=== PATIENT | female | born 1990 | race Hispanic/Latino ===

== ENCOUNTER 2017-11-26 06:16 | Inpatient (IN) | payer BC ==
[2017-11-26] MEDS: Lactated Ringer's 1,000 ML IV SCH ×2 (07:20→12:00)
[2017-11-26] MEDS ORDERED: Penicillin G Potassium 5 MILL.UNITS VIAL ONE (07:45)
[2017-11-26 08:44] VITALS: BMI 45.7
[2017-11-26] MEDS ORDERED: Lactated Ringer's 1,000 ML IV SCH (08:45)
[2017-11-26] MEDS ORDERED: Ibuprofen 800 MG TAB PO PRN (08:45)
[2017-11-26] MEDS ORDERED: Ondansetron HCl/PF 4 MG/2 ML Vial IVP PRN ×4 (08:45→23:20)
[2017-11-26] MEDS ORDERED: Lidocaine 1% (PF) 30 ML VIAL SC PRN (08:45)
[2017-11-26] MEDS ORDERED: Promethazine HCl 25 MG/ML VIAL IM PRN ×4 (08:45→23:20)
[2017-11-26] MEDS ORDERED: Butorphanol Tartrate 1 MG/ML VIAL SLOW IVP PRN (08:45)
[2017-11-26] MEDS ORDERED: Penicillin G Potassium 5 MILL.UNITS in Sodium Chloride 0.9% 100 ML IVPB SCH (08:45)
[2017-11-26] MEDS ORDERED: Zolpidem Tartrate 5 MG TAB PO PRN ×2 (08:45→18:41)
[2017-11-26] MEDS ORDERED: NS / Oxytocin 40 units/1000ml 1,000 ML IV PRN (08:45)
[2017-11-26] MEDS ORDERED: Acetaminophen/Codeine 30-300mg Tablet PO PRN ×2 (08:45)
[2017-11-26 08:57] LABS: Hemoglobin 11.8 g/dL (12.0-16.0); Mean Corpuscular HGB CONC 34.3 g/dL (32.0-36.0); Mean Corpuscular Hemoglobin 29.9 pg (27.0-31.0); Mean Corpuscular Volume 87.1 fL (78.0-98.0); Mean Platelet Volume 9.3 fL (7.4-10.4); Platelet Count 142 thou/uL (130-400); RBC Distribution Width 13.2 % (11.5-14.5); Red Blood Cell (RBC) Count 3.96 mill/uL (4.20-5.40); White Blood Cell (WBC) Count 8.5 thou/uL (4.8-10.8)
[2017-11-26] MEDS: NS w/ Oxytocin 10 units 500 ML IV SCH (09:22)
[2017-11-26] MEDS ORDERED: Succinylcholine Chloride 20 MG/ML 10 ml SYRINGE FS ONE (09:41)
[2017-11-26] MEDS ORDERED: Lidocaine 1% PF 5 ML VIAL ONE (09:41)
[2017-11-26] MEDS ORDERED: PROPOFOL 200 MG/20 ML VIAL ONE (09:41)
[2017-11-26 09:42] LABS: HBSAg Index 0.23 S/CO (0-0.99); Hep B Surf Ag Non-Reactive S/CO (NonReactive); Syphilis Antibody Nonreactive (Nonreactive); Syphilis Antibody Index 0.04 S/CO (<1.00 Non-Reactive)
[2017-11-26] MEDS ORDERED: DISCONTINUE ALL PREVIOUS NARCOTICS FS SCH (10:30)
[2017-11-26] MEDS: Penicillin G 2.5 MILL.units 2.5 MILL.UNITS in Premix Bag 1 BAG IVPB SCH ×2 (11:38→15:33)
[2017-11-26] MEDS: Bupivacaine 0.5% 20 ML, fentaNYL Citrate/PF 400 MCG in Sodium Chloride 0.9% 72 ML EPIDURAL SCH ×3 (11:45→19:10)
[2017-11-26] MEDS ORDERED: Naloxone HCl 0.4 mg/ml Vial IVP PRN ×2 (11:52)
[2017-11-26] MEDS ORDERED: Eucerin (Mineral Oil/Petrolatum,White) 30 gm Jar TOP PRN (11:52)
[2017-11-26] MEDS ORDERED: Acetaminophen 325 MG TAB PO PRN (11:52)
[2017-11-26] MEDS ORDERED: Lactated Ringer's 500 ML IV PRN (11:52)
[2017-11-26] MEDS ORDERED: diphenhydrAMINE 50 MG/ML VIAL IVP PRN (11:52)
[2017-11-26] MEDS ORDERED: ePHEDrine/0.9% NaCl/PF SYRINGE 50 mg/10 ml SLOW IVP PRN (11:52)
[2017-11-26] MEDS ORDERED: Communication Order-Pharmacy FS SCH (12:00)
[2017-11-26] MEDS ORDERED: fentaNYL Citrate/PF 400 MCG, Bupivacaine 0.5% 20 ML in Sodium Chloride 0.9% 72 ML EPIDURAL SCH (12:00)
[2017-11-26] MEDS ORDERED: Lidocaine 2% MPF 10 ML AMP (For Epidural Use) ONE (12:46)
[2017-11-26] MEDS ORDERED: Bupivacaine 0.25% HCL 30 ML VIAL ONE (12:46)
[2017-11-26] MEDS ORDERED: Measles/Mumps/Rubella 10 MCG/0.5 ML VIAL SC ONE (18:41)
[2017-11-26] MEDS ORDERED: Adacel (T-DAP) 0.5 ML VIAL IM ONE (18:41)
[2017-11-26] MEDS ORDERED: Bisacodyl 10 MG SUPP PR PRN (18:41)
[2017-11-26] MEDS ORDERED: HYDROcodone/Acetaminophen 5/325 mg Tablet PO PRN ×2 (18:41)
[2017-11-26] MEDS ORDERED: Lanolin Ointment 7 GM TUBE TOP PRN (18:41)
[2017-11-26] MEDS ORDERED: Misoprostol 200 MCG TAB VAG PRN (18:41)
[2017-11-26] MEDS ORDERED: Varicella virus, LIVE 0.5 ML VIAL SC ONE (18:41)
[2017-11-26] MEDS ORDERED: Benzocaine/Menthol 20-0.5% 60 ML CAN TOP PRN (18:41)
[2017-11-26] MEDS ORDERED: Methylergonovine 0.2 MG/ML VIAL IM PRN (18:41)
[2017-11-26] MEDS ORDERED: Milk Of Magnesia 30 ML UDCUP PO PRN (18:41)
[2017-11-26] MEDS ORDERED: diphenhydrAMINE 25 MG CAP PO PRN (18:41)
[2017-11-26] MEDS ORDERED: Preparation H Ointment 28 GM TUBE PR PRN (18:41)
[2017-11-26] MEDS ORDERED: NS / Oxytocin 40 units/1000ml 1,000 ML IV SCH (18:45)
[2017-11-26] MEDS ORDERED: Tranexamic Acid 1,000 MG in Sodium Chloride 0.9% 100 ML IVPB SCH (22:45)
[2017-11-26] MEDS ORDERED: Carboprost 250 MCG/ML AMP IM SCH (22:45)
[2017-11-26] MEDS ORDERED: Tranexamic Acid 1,000 MG in Sodium Chloride 0.9% 250 ML 250 ML IVPB SCH (23:00)
[2017-11-26] MEDS ORDERED: Promethazine HCl 25 MG/ML VIAL SLOW IVP PRN (23:20)
[2017-11-27] MEDS ORDERED: Promethazine HCl 25 MG/ML VIAL IM SCH (00:45)
[2017-11-27] MEDS ORDERED: Simethicone Chewable 80 MG TAB PO PRN (02:27)
[2017-11-27] MEDS ORDERED: Morphine 4 MG/ML VIAL SLOW IVP PRN (03:36)
[2017-11-27 05:32] LABS: Hemoglobin 10.9 g/dL (12.0-16.0); Mean Corpuscular HGB CONC 34.2 g/dL (32.0-36.0); Mean Corpuscular Volume 87.5 fL (78.0-98.0); Mean Platelet Volume 9.3 fL (7.4-10.4); Platelet Count 126 thou/uL (130-400); RBC Distribution Width 13.2 % (11.5-14.5); Red Blood Cell (RBC) Count 3.63 mill/uL (4.20-5.40); White Blood Cell (WBC) Count 11.4 thou/uL (4.8-10.8)
[2017-11-27] MEDS: Ibuprofen 800 MG TAB PO SCH ×3 (07:28→17:28)
[2017-11-27] MEDS: Docusate Calcium (SURFAK) 240 MG CAP PO SCH ×3 (09:06→20:56)
[2017-11-27] MEDS: Ferrous Sulfate 325 MG TAB PO SCH ×2 (09:08→17:28)
[2017-11-27] MEDS: Lactated Ringer's 1,000 ML IV SCH (09:09)
[2017-11-27] MEDS: NS w/ Oxytocin 10 units 500 ML IV SCH (09:09)
[2017-11-27] MEDS: Penicillin G 2.5 MILL.units 2.5 MILL.UNITS in Premix Bag 1 BAG IVPB SCH (09:09)
[2017-11-27] MEDS: Prenatal Vitamin 1 TAB PO SCH (09:41)
--- NOTE | 2017-11-27 20:52 | PDOC.PP ---
Post Progress Note Post Day #: 1 PO intake tolerated: yes Flatus: yes Ambulation: yes Vital Signs (12 hours) Temp Pulse Resp BP 11/27/17 17:00 99.0 F 80 18 102/55 L 11/27/17 12:00 98.9 F 104 H 18 107/59 L 11/27/17 09:45 94 18 112/58 L Weight Weight 258 lb - Physical Examination General: NAD Cardiovascular: RRR Respiratory: clear to auscultation bilaterally Abdominal: + bowel sounds, no distention Extremities: negative homans (B) Neurological: no gross focal deficits Psychiatric: A&Ox3, normal affect Result Diagrams: 11/27/17 05:03 Additional Labs: Post Labs Blood Type O POSITIVE 11/26/17 07:39 Hep Bs Antigen Non-Reactive S/CO (NonReactive) 11/26/17 07:39 - Assessment/Plan Patient is doing very well this afternoon. Minimal bleeding. DC to home planned for tomorrow.
--- NOTE | 2017-11-27 21:02 | PDOC.OPDEL ---
OB Operative/Delivery Note Delivery Dr/Surgeon: Dhruv Ramirez Pre-Delivery Diagnosis: elective induction Procedure/Post Delivery Dx: other (Spontaneous Vaginal Delivery and Exam Under Anesthesia for Post Hemorrhahe/Rule out Cervical Laceration.) Anesthesia: epidural - Additional Findings/Plan Placenta delivered: spontaneous Repaired Obstetrical Laceration: 2nd degree Estimated blood loss: 1400 Compilations/Other Findings: Patient had a post hemorrhage estimated to be in excess of 1400ml. She received multi-agent tocolytics including Pitocin, Cytotec, Methergine, Hemabate , and TXA. Patient did not tolerate a bedside exam, and we could not rule out vaginal or cervical injury as a source of bleeding in the LDR. The patient was taken to the operating room where she received general anesthesia, and a careful exam under anesthesia. Dr. Neil joined me for assistance to help me. We both noted that no visible injuries could be detected on vaginal exam, and that bleeding was in deed improving by this point to a very stable appearing situation. Patient was extubated, and returned to the L&D unit for further observation and recovery. No blood products were used or needed up to this point. Post delivery plan: routine recovery
[2017-11-28] MEDS: Ibuprofen 800 MG TAB PO SCH ×2 (00:20→07:44)
[2017-11-28] MEDS: Prenatal Vitamin 1 TAB PO SCH (08:47)
[2017-11-28 09:48] VITALS: BP 116/59; TEMP 98.9
[2017-11-28] MEDS: Ferrous Sulfate 325 MG TAB PO SCH (11:19)
[2017-11-28] MEDS: Docusate Calcium (SURFAK) 240 MG CAP PO SCH (11:20)
== END 2017-11-28 12:35 | disposition home or self-care (01) | DRG 774 ==
LOC: L&D 06:16 → 3SW 23:46 → L&D 11-27 00:03 → 3SW 11-27 09:38
PROVIDERS: ADMIT Obstetrics & Gynecology; ATTEND Obstetrics & Gynecology
PROC: 10E0XZZ Delivery of Products of Conception, External Approach (ICD-10-PCS; principal; 2017-11-26)
PROC: 4A0HXCZ Measurement of Products of Conception, Cardiac Rate, External Approach (ICD-10-PCS; 2017-11-26)
PROC: 3E033VJ Introduction of Other Hormone into Peripheral Vein, Percutaneous Approach (ICD-10-PCS; 2017-11-26)
PROC: 0KQM0ZZ Repair Perineum Muscle, Open Approach (ICD-10-PCS; 2017-11-27)
DX: O70.1 Second degree perineal laceration during delivery (principal); O72.2 Delayed and secondary postpartum hemorrhage; Z37.0 Single live birth; Z3A.00 Weeks of gestation of pregnancy not specified
CPT/HCPCS: 36415; 51702; 85027; 86780; 86850; 86900; 86901; 87340; 90707; 90715; 90716; J2001; J2540; J2704; J3010; J3490; J7050; S0020